=== PATIENT | female | born 1960 | race Caucasian/White ===

== ENCOUNTER → 2018-10-12 | Outpatient (CLI) | payer OTHER ==
[~2018-10-12] MED LIST: ANTIVERT25 MG PO; DIPHENHIST50 MG PO; LISINOPRIL-HCT1 EACH PO; MACROBID 100 M100 M2 PO; ONDANSETRON HCL4 M2 PO; PERCOCET PO; VICODIN HP 10-1 EAC1 PO; XANAX 0.5 MG0.5 MG PO
== END ==
LOC: M.RAD 14:14
DX: Z12.31 Encounter for screening mammogram for malignant neoplasm of breast (principal)